=== PATIENT | male | born 1940 | race African-American/Black ===

== ENCOUNTER 2020-12-29 23:34 | Inpatient (IN) | payer MEDICARE, MEDICAID ==
[2020-12-30] MEDS ORDERED: Furosemide 40 MG/4 ML VIAL ONE (00:33)
[2020-12-30] MEDS ORDERED: Nitroglycerin 2% Ointment 1 INCH/1 GM Packet ONE (00:34)
[2020-12-30 00:57] LABS: Bilirubin Neg (Negative); Blood, Urine 10 (Negative); Clarity Clear (Clear); Glucose, Urine (Dipstick) Normal (Negative); Ketone, Urine Negative (Negative); Leukocyte 500 (Negative); Nitrite Positive (Negative); Protein, Urine (Dipstick) 15 mg/dl (Neg-Trace); Urobilinogen Normal mg/dL (Less than 2)
[2020-12-30 00:58] LABS: #Basophils 0.1 10x3/uL (0.0-0.2); #Neutrophils 5.5 10x3/uL (1.5-8.4); %Basophils 0.6 % (0.0-2.0); %Eosinophils 0.2 % (0.0-6.0); %Lymphocytes 14.9 % (18.0-47.0); %Monocytes 12.3 % (0.0-10.0); %Neutrophils 67.7 % (40.0-75.0); Hemoglobin 11.4 g/dL (13.5-17.5); Mean Corpuscular HGB CONC 32.2 g/dL (32.0-36.0); Mean Corpuscular Hemoglobin 27.5 pg (27.0-33.0); Mean Corpuscular Volume 85.5 fl (81.2-95.1); Mean Platelet Volume 10.8 fl (7.4-10.4); Platelet Count 148 10x3/uL (150-450); RBC Distribution Width 16.5 % (11.5-14.5); Red Blood Cell (RBC) Count 4.14 10x6/uL (4.32-5.72); White Blood Cell (WBC) Count 8.2 10x3/uL (3.5-10.5)
[2020-12-30 01:01] LABS: ALT (SGPT) 13 U/L (8-55); AST (SGOT) 16 U/L (5-34); Albumin 2.6 g/dL (3.4-4.8); Alkaline Phosphatase 87 U/L (40-110); Anion Gap 10 mmol/L (10-20); BUN (Urea Nitrogen) 35 mg/dL (8.4-25.7); Bilirubin, Total 0.2 mg/dL (0.2-1.2); CK (CPK) 103 U/L (30-200); Calc. Creatinine Clearance 0 mL/min (70-130); Calcium 8.7 mg/dL (7.8-10.44); Carbon Dioxide 27 mmol/L (23-31); Chloride 106 mmol/L (98-107); Globulin 4.1 g/dL (2.4-3.5); Glucose 110 mg/dL (83-110); Lipase 38 U/L (8-78); Potassium 4.2 mmol/L (3.5-5.1); Protein, Total 6.7 g/dL (5.8-8.1); Sodium 139 mmol/L (136-145)
[2020-12-30 01:07] LABS: Bacteria/HPF 3+ HPF (None Seen); Squamous Epithelial None Seen HPF (0-3)
[2020-12-30] MEDS ORDERED: cefTRIAXone\\ROCEPHIN 2 GM VIAL ONE (01:39)
[2020-12-30] MEDS ORDERED: Bisacodyl 5 MG TAB PO PRN (03:29)
[2020-12-30] MEDS ORDERED: HYDROcodone/Acetaminophen 5/325 mg Tablet PO PRN (03:29)
[2020-12-30 03:34] LABS: SARS-CoV-2 NAA Rapid Test Not Detected (NotDetected)
[2020-12-30] MEDS ORDERED: FLU VACC QS2021-22(65YR UP)/PF 240 MCG/0.7 ML SYRINGE IM ONE (04:15)
[2020-12-30] MEDS ORDERED: Acetaminophen 325 MG TAB PO PRN (04:40)
[2020-12-30] MEDS ORDERED: Mag-Al Plus 1200 MG/1200 MG/120 MG/30 ML UDCUP PO PRN (04:58)
[2020-12-30] MEDS ORDERED: Albuterol Sulfate 2.5 mg/3 ml Neb NEB PRN (05:01)
[2020-12-30 05:08] LABS: #Monocytes 1.1 10x3/uL (0.0-1.1); #Neutrophils 4.9 10x3/uL (1.5-8.4); %Basophils 0.5 % (0.0-2.0); %Eosinophils 0.5 % (0.0-6.0); %Lymphocytes 17.7 % (18.0-47.0); %Monocytes 14.2 % (0.0-10.0); %Neutrophils 62.9 % (40.0-75.0); Hemoglobin 11.1 g/dL (13.5-17.5); Mean Corpuscular HGB CONC 31.6 g/dL (32.0-36.0); Mean Corpuscular Hemoglobin 27.2 pg (27.0-33.0); Mean Platelet Volume 9.9 fl (7.4-10.4); Platelet Count 129 10x3/uL (150-450); RBC Distribution Width 16.3 % (11.5-14.5); Red Blood Cell (RBC) Count 4.08 10x6/uL (4.32-5.72); White Blood Cell (WBC) Count 7.8 10x3/uL (3.5-10.5)
[2020-12-30 05:10] LABS: Anion Gap 13 mmol/L (10-20); BUN (Urea Nitrogen) 35 mg/dL (8.4-25.7); Calc. Creatinine Clearance 116 mL/min (70-130); Calcium 8.7 mg/dL (7.8-10.44); Carbon Dioxide 27 mmol/L (23-31); Chloride 105 mmol/L (98-107); Glucose 71 mg/dL (83-110); Potassium 4.1 mmol/L (3.5-5.1); Sodium 141 mmol/L (136-145)
[2020-12-30] MEDS: Allopurinol 300 MG TAB PO SCH (09:17)
[2020-12-30] MEDS: Losartan Potassium 50 MG TAB PO SCH (09:17)
[2020-12-30] MEDS: Pregabalin 50 MG CAP PO SCH ×2 (09:18→20:47)
[2020-12-30] MEDS: Aspirin 81 mg Enteric Coated Tablet PO SCH (09:18)
[2020-12-30] MEDS: Ezetimibe 10 MG TAB PO SCH (09:18)
[2020-12-30] MEDS: predniSONE 20 MG TAB PO SCH (09:19)
[2020-12-30] MEDS: Tamsulosin HCl 0.4 MG CAP PO SCH (09:20)
[2020-12-30] MEDS: Finasteride 5 MG TAB PO SCH (09:20)
[2020-12-30] MEDS: Furosemide 40 MG/4 ML VIAL SLOW IVP SCH ×2 (09:21→14:29)
[2020-12-30] MEDS: Spironolactone 25 MG TAB PO SCH (09:21)
[2020-12-30] MEDS: Docusate 100 MG CAP PO SCH ×2 (09:21→20:48)
[2020-12-30] MEDS: Polyethylene Glycol 3350 17 GM Packet PO SCH ×2 (09:22→20:48)
[2020-12-30] MEDS: Potassium Chloride 20 MEQ TAB PO SCH ×2 (09:22→20:48)
[2020-12-30] MEDS: Clotrimazole 1% Cream 15 GM TUBE TOP SCH ×2 (09:23→20:47)
[2020-12-30] MEDS: Loratadine 10 MG TAB PO SCH (09:25)
[2020-12-30] MEDS: Enoxaparin Sodium 40 MG/0.4 ML SYRINGE SC SCH (09:25)
[2020-12-31] MEDS: Furosemide 40 MG/4 ML VIAL SLOW IVP SCH (05:17)
[2020-12-31 08:26] LABS: #Basophils 0.1 10x3/uL (0.0-0.2); #Eosinphils 0.1 10x3/uL (0.0-0.5); #Neutrophils 3.4 10x3/uL (1.5-8.4); %Basophils 0.8 % (0.0-2.0); %Eosinophils 0.8 % (0.0-6.0); %Lymphocytes 22.5 % (18.0-47.0); %Monocytes 16.4 % (0.0-10.0); %Neutrophils 55.3 % (40.0-75.0); Hemoglobin 11.8 g/dL (13.5-17.5); Mean Corpuscular HGB CONC 31.6 g/dL (32.0-36.0); Mean Corpuscular Hemoglobin 26.9 pg (27.0-33.0); Mean Corpuscular Volume 85.2 fl (81.2-95.1); Mean Platelet Volume 10.7 fl (7.4-10.4); Platelet Count 137 10x3/uL (150-450); RBC Distribution Width 16.7 % (11.5-14.5); Red Blood Cell (RBC) Count 4.39 10x6/uL (4.32-5.72); White Blood Cell (WBC) Count 6.2 10x3/uL (3.5-10.5)
[2020-12-31 08:41] LABS: ALT (SGPT) 15 U/L (8-55); AST (SGOT) 20 U/L (5-34); Albumin 2.8 g/dL (3.4-4.8); Alkaline Phosphatase 68 U/L (40-110); Anion Gap 13 mmol/L (10-20); BUN (Urea Nitrogen) 33 mg/dL (8.4-25.7); Bilirubin, Total 0.2 mg/dL (0.2-1.2); Calc. Creatinine Clearance 109 mL/min (70-130); Calcium 9.4 mg/dL (7.8-10.44); Carbon Dioxide 32 mmol/L (23-31); Chloride 104 mmol/L (98-107); Globulin 3.9 g/dL (2.4-3.5); Glucose 63 mg/dL (83-110); Phosphorus 3.9 mg/dL (2.3-4.7); Potassium 4.6 mmol/L (3.5-5.1); Protein, Total 6.7 g/dL (5.8-8.1); Sodium 144 mmol/L (136-145)
[2020-12-31] MEDS: Ezetimibe 10 MG TAB PO SCH (09:10)
[2020-12-31] MEDS: Clotrimazole 1% Cream 15 GM TUBE TOP SCH ×2 (09:10→21:20)
[2020-12-31] MEDS: Losartan Potassium 50 MG TAB PO SCH (09:10)
[2020-12-31] MEDS: Enoxaparin Sodium 40 MG/0.4 ML SYRINGE SC SCH (09:10)
[2020-12-31] MEDS: Tamsulosin HCl 0.4 MG CAP PO SCH (09:11)
[2020-12-31] MEDS: Potassium Chloride 20 MEQ TAB PO SCH ×2 (09:11→20:39)
[2020-12-31] MEDS: Aspirin 81 mg Enteric Coated Tablet PO SCH (09:11)
[2020-12-31] MEDS: Pregabalin 50 MG CAP PO SCH ×2 (09:11→20:39)
[2020-12-31] MEDS: Finasteride 5 MG TAB PO SCH (09:12)
[2020-12-31] MEDS: Loratadine 10 MG TAB PO SCH (09:12)
[2020-12-31] MEDS: Allopurinol 300 MG TAB PO SCH (09:13)
[2020-12-31] MEDS: Spironolactone 25 MG TAB PO SCH (09:13)
[2020-12-31] MEDS: predniSONE 20 MG TAB PO SCH (09:13)
[2020-12-31] MEDS: Polyethylene Glycol 3350 17 GM Packet PO SCH ×2 (09:14→21:21)
[2020-12-31] MEDS: Docusate 100 MG CAP PO SCH ×2 (09:14→21:22)
[2020-12-31 09:44] LABS: Anisocytosis SLIGHT = 6-15 cells (100X) (0-5/hpf); Band 2 % (5-11); Eosinophils 1 % (0-10); Lymphocytes 20 % (21-51); Monocytes 19 % (0-10); Platelet Morphology Comment Appears Adequate
[2020-12-31] MEDS ORDERED: Furosemide 40 MG/4 ML VIAL SLOW IVP SCH (14:00)
[2021-01-01 05:22] LABS: #Eosinphils 0.1 10x3/uL (0.0-0.5); #Neutrophils 4.1 10x3/uL (1.5-8.4); %Basophils 0.3 % (0.0-2.0); %Eosinophils 0.9 % (0.0-6.0); %Monocytes 14.6 % (0.0-10.0); %Neutrophils 59.2 % (40.0-75.0); Hemoglobin 10.6 g/dL (13.5-17.5); Mean Corpuscular HGB CONC 31.8 g/dL (32.0-36.0); Mean Corpuscular Hemoglobin 27.2 pg (27.0-33.0); Mean Corpuscular Volume 85.6 fl (81.2-95.1); Mean Platelet Volume 10.7 fl (7.4-10.4); Platelet Count 134 10x3/uL (150-450); RBC Distribution Width 16.6 % (11.5-14.5); Red Blood Cell (RBC) Count 3.89 10x6/uL (4.32-5.72); White Blood Cell (WBC) Count 6.8 10x3/uL (3.5-10.5)
[2021-01-01 05:53] LABS: ALT (SGPT) 16 U/L (8-55); AST (SGOT) 19 U/L (5-34); Albumin 2.5 g/dL (3.4-4.8); Alkaline Phosphatase 69 U/L (40-110); Anion Gap 13 mmol/L (10-20); BUN (Urea Nitrogen) 40 mg/dL (8.4-25.7); Bilirubin, Total 0.2 mg/dL (0.2-1.2); Calc. Creatinine Clearance 104 mL/min (70-130); Calcium 8.8 mg/dL (7.8-10.44); Carbon Dioxide 30 mmol/L (23-31); Chloride 103 mmol/L (98-107); Globulin 3.2 g/dL (2.4-3.5); Glucose 114 mg/dL (83-110); Magnesium 2.2 mg/dL (1.6-2.6); Phosphorus 3.7 mg/dL (2.3-4.7); Potassium 4.5 mmol/L (3.5-5.1); Protein, Total 5.7 g/dL (5.8-8.1); Sodium 141 mmol/L (136-145)
[2021-01-01 06:30] VITALS: BMI 33.5
[2021-01-01] MEDS: Pregabalin 50 MG CAP PO SCH (08:34)
[2021-01-01] MEDS: Enoxaparin Sodium 40 MG/0.4 ML SYRINGE SC SCH (08:34)
[2021-01-01] MEDS: Allopurinol 300 MG TAB PO SCH (08:34)
[2021-01-01] MEDS: Clotrimazole 1% Cream 15 GM TUBE TOP SCH (08:35)
[2021-01-01] MEDS: Spironolactone 25 MG TAB PO SCH (08:35)
[2021-01-01] MEDS: Ezetimibe 10 MG TAB PO SCH (08:35)
[2021-01-01] MEDS: Furosemide 20 MG TAB PO SCH ×2 (08:35→14:14)
[2021-01-01] MEDS: Potassium Chloride 20 MEQ TAB PO SCH (08:35)
[2021-01-01] MEDS: Finasteride 5 MG TAB PO SCH (08:35)
[2021-01-01] MEDS: Loratadine 10 MG TAB PO SCH (08:35)
[2021-01-01] MEDS: Aspirin 81 mg Enteric Coated Tablet PO SCH (08:35)
[2021-01-01] MEDS: Losartan Potassium 50 MG TAB PO SCH (08:35)
[2021-01-01] MEDS: predniSONE 20 MG TAB PO SCH (08:35)
[2021-01-01] MEDS: Docusate 100 MG CAP PO SCH (08:36)
[2021-01-01] MEDS: Tamsulosin HCl 0.4 MG CAP PO SCH (08:36)
[2021-01-01] MEDS: Polyethylene Glycol 3350 17 GM Packet PO SCH (08:36)
[2021-01-01 12:08] VITALS: BP 109/63; TEMP 98.2
== END 2021-01-01 15:14 | DRG 293 ==
LOC: CSHERS 23:34 → CSHTELE 12-30 01:51
PROVIDERS: ADMIT Family Medicine; ATTEND Family Medicine
DX: I50.33 Acute on chronic diastolic (congestive) heart failure (principal); G62.9 Polyneuropathy, unspecified; R60.1 Generalized edema; Z20.822 Contact with and (suspected) exposure to COVID-19; R14.0 Abdominal distension (gaseous); Z86.73 Personal history of transient ischemic attack (TIA), and cerebral infarction without residual deficits; E78.5 Hyperlipidemia, unspecified; K21.9 Gastro-esophageal reflux disease without esophagitis; Z80.1 Family history of malignant neoplasm of trachea, bronchus and lung; Z82.49 Family history of ischemic heart disease and other diseases of the circulatory system; Z87.891 Personal history of nicotine dependence; L89.152 Pressure ulcer of sacral region, stage 2; Z97.8 Presence of other specified devices; N40.1 Benign prostatic hyperplasia with lower urinary tract symptoms; I51.7 Cardiomegaly; B35.6 Tinea cruris; E88.09 Other disorders of plasma-protein metabolism, not elsewhere classified; L60.0 Ingrowing nail; B35.1 Tinea unguium
CPT/HCPCS: 36415; 36416; 71045; 74018; 76705; 80053; 81003; 81015; 82550; 83690; 83735; 83880; 84100; 84484; 85025; 87077; 87086; 87186; 93005; 93306; 96374; 96375; J0696; J1650; J1940; J7512; U0002

== ENCOUNTER 2021-02-24 22:21 | Emergency (ER) | payer MEDICARE, MEDICAID | END 2021-02-24 22:45 | disposition home or self-care (01) | LOC: CSHERS 22:21 | DX: T83.011A Breakdown (mechanical) of indwelling urethral catheter, initial encounter (principal); Z46.6 Encounter for fitting and adjustment of urinary device; I13.0 Hypertensive heart and chronic kidney disease with heart failure and stage 1 through stage 4 chronic kidney disease, or unspecified chronic kidney disease; I50.9 Heart failure, unspecified; N18.9 Chronic kidney disease, unspecified; D63.1 Anemia in chronic kidney disease; K21.9 Gastro-esophageal reflux disease without esophagitis; E78.5 Hyperlipidemia, unspecified; Z86.73 Personal history of transient ischemic attack (TIA), and cerebral infarction without residual deficits; G62.9 Polyneuropathy, unspecified; Z79.82 Long term (current) use of aspirin; Z79.899 Other long term (current) drug therapy | CPT/HCPCS: 51702 ==

== ENCOUNTER 2021-03-15 22:08 | Emergency (ER) | payer MEDICARE ==
[2021-03-15 22:55] LABS: Bilirubin Neg (Negative); Blood, Urine 25 (Negative); Clarity Slightly Cloudy (Clear); Glucose, Urine (Dipstick) Normal (Negative); Ketone, Urine Negative (Negative); Leukocyte 500 (Negative); Nitrite Negative (Negative); Protein, Urine (Dipstick) 15 mg/dl (Neg-Trace); Urobilinogen Normal mg/dL (Less than 2)
[2021-03-15 23:19] LABS: Bacteria/HPF 4+ HPF (None Seen); RBC/HPF 0-3 HPF (0-3); Squamous Epithelial None Seen HPF (0-3)
[2021-03-15 23:20] LABS: Mucous/LPF 1+ LPF (<2+)
== END 2021-03-15 23:13 | disposition home or self-care (01) ==
LOC: CSHERS 22:08
DX: T83.098A Other mechanical complication of other urinary catheter, initial encounter (principal); B37.2 Candidiasis of skin and nail
CPT/HCPCS: 51702; 81003; 81015; 87077; 87086; 87186

== ENCOUNTER 2021-03-23 06:43 | Inpatient (IN) | payer MEDICARE, MEDICAID ==
[2021-03-23 07:36] LABS: Hemoglobin 12.6 g/dL (13.5-17.5); Mean Corpuscular HGB CONC 31.7 g/dL (32.0-36.0); Mean Corpuscular Hemoglobin 27.7 pg (27.0-33.0); Mean Corpuscular Volume 87.3 fl (81.2-95.1); Mean Platelet Volume 10.1 fl (7.4-10.4); Platelet Count 188 10x3/uL (150-450); RBC Distribution Width 17.1 % (11.5-14.5); Red Blood Cell (RBC) Count 4.55 10x6/uL (4.32-5.72); White Blood Cell (WBC) Count 10.1 10x3/uL (3.5-10.5)
[2021-03-23 07:37] LABS: MDiff Complete? YES
[2021-03-23 07:57] LABS: ALT (SGPT) 13 U/L (8-55); AST (SGOT) 20 U/L (5-34); Albumin 3.1 g/dL (3.4-4.8); Alkaline Phosphatase 71 U/L (40-110); Anion Gap 18 mmol/L (10-20); BUN (Urea Nitrogen) 67 mg/dL (8.4-25.7); Bilirubin, Total 0.3 mg/dL (0.2-1.2); Calc. Creatinine Clearance 0 mL/min (70-130); Calcium 8.7 mg/dL (7.8-10.44); Carbon Dioxide 23 mmol/L (23-31); Chloride 98 mmol/L (98-107); Globulin 3.6 g/dL (2.4-3.5); Glucose 95 mg/dL (83-110); Potassium 5.4 mmol/L (3.5-5.1); Protein, Total 6.7 g/dL (5.8-8.1); Sodium 134 mmol/L (136-145)
[2021-03-23 08:15] LABS: Diff Comment (RBC Morph SCRN) NORMAL
[2021-03-23 08:16] LABS: Platelet Morphology Comment Appears Adequate
[2021-03-23 08:40] LABS: Lymphocytes 27 % (21-51); Monocytes 35 % (0-10); Neutrophil 36 % (42-75); Reactive Lymphocytes 2 % (0-10)
[2021-03-23] MEDS ORDERED: Ondansetron PF 4 MG/2 ML Vial IVP PRN (09:20)
[2021-03-23] MEDS: Sodium Chloride 0.9% 1,000 ML IV SCH (10:30)
[2021-03-23] MEDS ORDERED: Sodium Chloride 0.9% 500 ML IV SCH (10:45)
[2021-03-23 11:01] LABS: Bilirubin Neg (Negative); Blood, Urine 150 (Negative); Clarity Cloudy (Clear); Glucose, Urine (Dipstick) Normal (Negative); Ketone, Urine Negative (Negative); Leukocyte 500 (Negative); Nitrite Positive (Negative); Protein, Urine (Dipstick) 30 mg/dl (Neg-Trace); Urobilinogen Normal mg/dL (Less than 2)
[2021-03-23 11:17] LABS: Bacteria/HPF 4+ HPF (None Seen); Squamous Epithelial 0-3 HPF (0-3); Triple Phosphate Crystal 4+ HPF (None Seen)
[2021-03-23 11:18] LABS: Urine Culture Reflex Yes Yes
[2021-03-23 11:19] LABS: Lactic Acid 2.4 mmol/L (0.5-2.2)
[2021-03-23] MEDS ORDERED: Norepinephrine 8 MG/0.9% NS 250 ML ONE (13:53)
[2021-03-23] MEDS: Norepinephrine 8 MG/0.9% NS 250 ML IVPB SCH (14:00)
[2021-03-23] MEDS ORDERED: Cefepime 1 GM VIAL ONE (14:10)
[2021-03-23 15:16] LABS: Anion Gap 17 mmol/L (10-20); BUN (Urea Nitrogen) 62 mg/dL (8.4-25.7); Calc. Creatinine Clearance 0 mL/min (70-130); Calcium 8.2 mg/dL (7.8-10.44); Carbon Dioxide 22 mmol/L (23-31); Chloride 103 mmol/L (98-107); Glucose 96 mg/dL (83-110); Sodium 136 mmol/L (136-145)
[2021-03-23 15:18] LABS: Potassium 5.5 mmol/L (3.5-5.1)
[2021-03-23] MEDS ORDERED: Vancomycin 1.5 GRAM/300 ML BAG 1.5 GM in Premix Bag 1 BAG IVPB SCH (15:30)
[2021-03-23] MEDS ORDERED: Vancomycin HCl 500 MG VIAL ONE (18:10)
[2021-03-23] MEDS ORDERED: Vancomycin 1 GM in Premix Bag 1 BAG IVPB SCH (21:00)
[2021-03-23] MEDS ORDERED: Cefepime 1 GM in Sodium Chloride 0.9% 100 ML IVPB SCH (21:00)
[2021-03-24] MEDS ORDERED: Cefepime 1 GM VIAL ONE (01:47)
[2021-03-24] MEDS: Cefepime 1 GM in Sodium Chloride 0.9% 100 ML IVPB SCH ×2 (01:53→14:54)
[2021-03-24] MEDS ORDERED: Nystatin Powder 15 GM BOT TOP PRN (02:04)
[2021-03-24] MEDS: Norepinephrine 8 MG/0.9% NS 250 ML IVPB SCH (04:25)
[2021-03-24 05:24] LABS: Anion Gap 14 mmol/L (10-20); Calc. Creatinine Clearance 90 mL/min (70-130); Calcium 8.3 mg/dL (7.8-10.44); Carbon Dioxide 21 mmol/L (23-31); Chloride 109 mmol/L (98-107); Glucose 97 mg/dL (83-110); Potassium 4.6 mmol/L (3.5-5.1); Sodium 139 mmol/L (136-145)
[2021-03-24 05:29] LABS: Hemoglobin 11.9 g/dL (13.5-17.5); Mean Corpuscular HGB CONC 31.2 g/dL (32.0-36.0); Mean Corpuscular Hemoglobin 27.2 pg (27.0-33.0); Mean Corpuscular Volume 87.4 fl (81.2-95.1); Mean Platelet Volume 9.3 fl (7.4-10.4); Platelet Count 161 10x3/uL (150-450); RBC Distribution Width 17.1 % (11.5-14.5); Red Blood Cell (RBC) Count 4.37 10x6/uL (4.32-5.72); White Blood Cell (WBC) Count 7.7 10x3/uL (3.5-10.5)
[2021-03-24 05:38] LABS: BUN (Urea Nitrogen) 49 mg/dL (8.4-25.7)
[2021-03-24] MEDS: Sodium Chloride 0.9% 1,000 ML IV SCH (06:29)
[2021-03-24 07:50] LABS: MDiff Complete? YES
[2021-03-24 08:06] LABS: Band 7 % (5-11); Eosinophils 1 % (0-10); Lymphocytes 15 % (21-51); Monocytes 8 % (0-10); Neutrophil 69 % (42-75)
[2021-03-24 08:07] LABS: Platelet Morphology Comment Appears Adequate
[2021-03-24] MEDS: Zinc Sulfate 220 MG CAP PO SCH (08:42)
[2021-03-24] MEDS: Ascorbic Acid 500 mg Chewable Tablet PO SCH (08:42)
[2021-03-24] MEDS: Cholecalciferol (Vitamin D3) 400 UNITS TAB PO SCH (08:42)
[2021-03-24] MEDS: Nystatin Powder 15 GM BOT TOP SCH ×2 (08:43→20:41)
[2021-03-24] MEDS ORDERED: Furosemide 40 MG/4 ML VIAL SLOW IVP SCH (09:00)
[2021-03-24] MEDS: Clotrimazole 1% Cream 15 GM TUBE TOP SCH ×2 (09:12→20:39)
[2021-03-24] MEDS ORDERED: Vancomycin HCl 1 GM in Sodium Chloride 0.9% 250 ML 250 ML IVPB SCH ×2 (12:00→23:59)
[2021-03-25] MEDS: Cefepime 1 GM in Sodium Chloride 0.9% 100 ML IVPB SCH ×2 (02:21→14:00)
[2021-03-25] MEDS: Sodium Chloride 0.9% 1,000 ML IV SCH (02:44)
[2021-03-25 04:47] LABS: Hemoglobin 10.8 g/dL (13.5-17.5); Mean Corpuscular HGB CONC 32.3 g/dL (32.0-36.0); Mean Corpuscular Hemoglobin 27.9 pg (27.0-33.0); Mean Corpuscular Volume 86.3 fl (81.2-95.1); Mean Platelet Volume 10.4 fl (7.4-10.4); Platelet Count 146 10x3/uL (150-450); RBC Distribution Width 17.2 % (11.5-14.5); Red Blood Cell (RBC) Count 3.87 10x6/uL (4.32-5.72); White Blood Cell (WBC) Count 7.6 10x3/uL (3.5-10.5)
[2021-03-25 05:00] LABS: Anion Gap 13 mmol/L (10-20); BUN (Urea Nitrogen) 42 mg/dL (8.4-25.7); Calc. Creatinine Clearance 94 mL/min (70-130); Calcium 7.9 mg/dL (7.8-10.44); Carbon Dioxide 18 mmol/L (23-31); Chloride 109 mmol/L (98-107); Glucose 84 mg/dL (83-110); Potassium 4.4 mmol/L (3.5-5.1); Sodium 136 mmol/L (136-145)
[2021-03-25 07:51] LABS: MDiff Complete? YES
[2021-03-25] MEDS: Cholecalciferol (Vitamin D3) 400 UNITS TAB PO SCH (08:05)
[2021-03-25] MEDS: Zinc Sulfate 220 MG CAP PO SCH (08:05)
[2021-03-25] MEDS: Ascorbic Acid 500 mg Chewable Tablet PO SCH (08:05)
[2021-03-25] MEDS: Nystatin Powder 15 GM BOT TOP SCH ×2 (08:06→21:38)
[2021-03-25] MEDS: Clotrimazole 1% Cream 15 GM TUBE TOP SCH (08:06)
[2021-03-25 08:25] LABS: Band 2 % (5-11); Lymphocytes 14 % (21-51); Metamyelocyte 3 % (0-0); Monocytes 5 % (0-10); Myelocyte 1 % (0-0); Neutrophil 75 % (42-75)
[2021-03-25 08:26] LABS: Anisocytosis SLIGHT = 6-15 cells (100X) (0-5/hpf); Platelet Morphology Comment Appears Adequate
[2021-03-25] MEDS ORDERED: FLU VACC QS2021-22(65YR UP)/PF 240 MCG/0.7 ML SYRINGE IM ONE (09:00)
[2021-03-25 11:59] LABS: Vancomycin, Trough 18.6 ug/mL
[2021-03-25] MEDS: Vancomycin HCl 1 GM in Sodium Chloride 0.9% 250 ML 250 ML IVPB SCH (17:11)
[2021-03-25] MEDS ORDERED: Ketoconazole 2% Cream 15 gm Tube TOP SCH (21:00)
[2021-03-25] MEDS: Acetaminophen 325 MG TAB PO PRN (21:37)
[2021-03-26] MEDS: traMADol HCl 50 MG TAB PO PRN ×2 (00:11→12:03)
[2021-03-26] MEDS: Cefepime 1 GM in Sodium Chloride 0.9% 100 ML IVPB SCH ×2 (02:43→14:24)
[2021-03-26 03:46] LABS: Band 17 % (5-11); Eosinophils 1 % (0-10); Hemoglobin 10.3 g/dL (13.5-17.5); Large Platelets SLIGHT; Lymphocytes 13 % (21-51); MDiff Complete? YES; Mean Corpuscular HGB CONC 31.8 g/dL (32.0-36.0); Mean Corpuscular Hemoglobin 27.2 pg (27.0-33.0); Mean Corpuscular Volume 85.7 fl (81.2-95.1); Mean Platelet Volume 9.8 fl (7.4-10.4); Monocytes 12 % (0-10); Neutrophil 57 % (42-75); Platelet Clumps SLIGHT; Platelet Count 136 10x3/uL (150-450); RBC Distribution Width 16.9 % (11.5-14.5); RBC Morphology Normal; Red Blood Cell (RBC) Count 3.78 10x6/uL (4.32-5.72); White Blood Cell (WBC) Count 5.2 10x3/uL (3.5-10.5)
[2021-03-26 03:47] LABS: Anion Gap 13 mmol/L (10-20); BUN (Urea Nitrogen) 33 mg/dL (8.4-25.7); Calc. Creatinine Clearance 113 mL/min (70-130); Calcium 7.7 mg/dL (7.8-10.44); Carbon Dioxide 19 mmol/L (23-31); Chloride 105 mmol/L (98-107); Glucose 73 mg/dL (83-110); Potassium 4.3 mmol/L (3.5-5.1); Sodium 133 mmol/L (136-145)
[2021-03-26] MEDS: Zinc Sulfate 220 MG CAP PO SCH (08:10)
[2021-03-26] MEDS: Ascorbic Acid 500 mg Chewable Tablet PO SCH (08:10)
[2021-03-26] MEDS: Cholecalciferol (Vitamin D3) 400 UNITS TAB PO SCH (08:10)
[2021-03-26] MEDS: Enoxaparin Sodium 40 MG/0.4 ML SYRINGE SC SCH ×2 (08:30→20:37)
[2021-03-26] MEDS: Nystatin Powder 15 GM BOT TOP SCH ×2 (08:33→20:37)
[2021-03-26] MEDS ORDERED: Pantoprazole 40 MG VIAL IVP SCH (09:00)
[2021-03-26] MEDS: Vancomycin HCl 1 GM in Sodium Chloride 0.9% 250 ML 250 ML IVPB SCH (12:10)
[2021-03-26] MEDS: Norepinephrine 8 MG/0.9% NS 250 ML IVPB SCH (12:21)
[2021-03-26 16:22] LABS: Actual Bicarbonate (HCO3v) 23 mEq/L (22-28); Base Excess -2.5 mEq/L (-2.0 to +3.0); Calcium, Ionized (venous) 1.02 mmol/L (1.16-1.32); Chloride (VBG) 101 mmol/L (98-106); Hemoglobin (Hb) 13.1 g/dL (12.6-17.4); Potassium (VBG) 5.14 mmol/L (3.70-5.30); Puncture Site Other Site; Sodium 131.7 mmol/L (133-146); pH (venous) 7.35 (7.32-7.43)
[2021-03-26] MEDS: Clotrimazole 1% Cream 15 GM TUBE TOP SCH (20:37)
[2021-03-27] MEDS: Cefepime 1 GM in Sodium Chloride 0.9% 100 ML IVPB SCH ×2 (01:09→14:01)
[2021-03-27] MEDS: Acetaminophen 325 MG TAB PO PRN (01:15)
[2021-03-27] MEDS: traMADol HCl 50 MG TAB PO PRN ×2 (02:36→14:02)
[2021-03-27 05:37] LABS: Vancomycin, Trough 16.1 ug/mL
[2021-03-27] MEDS: Vancomycin HCl 1 GM in Sodium Chloride 0.9% 250 ML 250 ML IVPB SCH (06:32)
[2021-03-27] MEDS: Clotrimazole 1% Cream 15 GM TUBE TOP SCH ×2 (08:00→22:08)
[2021-03-27] MEDS: Nystatin Powder 15 GM BOT TOP SCH ×2 (08:00→22:07)
[2021-03-27] MEDS: Cholecalciferol (Vitamin D3) 400 UNITS TAB PO SCH (09:06)
[2021-03-27] MEDS: Ascorbic Acid 500 mg Chewable Tablet PO SCH (09:06)
[2021-03-27] MEDS: Zinc Sulfate 220 MG CAP PO SCH (09:07)
[2021-03-27] MEDS: Enoxaparin Sodium 40 MG/0.4 ML SYRINGE SC SCH ×2 (09:07→22:07)
[2021-03-28 00:19] VITALS: TEMP 98.1
[2021-03-28] MEDS: Vancomycin HCl 1 GM in Sodium Chloride 0.9% 250 ML 250 ML IVPB SCH (01:29)
[2021-03-28] MEDS: Cefepime 1 GM in Sodium Chloride 0.9% 100 ML IVPB SCH (02:46)
[2021-03-28] MEDS: Nystatin Powder 15 GM BOT TOP SCH ×2 (08:57→20:27)
[2021-03-28] MEDS: Clotrimazole 1% Cream 15 GM TUBE TOP SCH ×2 (08:57→20:27)
[2021-03-28] MEDS: Cholecalciferol (Vitamin D3) 400 UNITS TAB PO SCH (08:57)
[2021-03-28] MEDS: Zinc Sulfate 220 MG CAP PO SCH (08:57)
[2021-03-28] MEDS: Enoxaparin Sodium 40 MG/0.4 ML SYRINGE SC SCH ×2 (08:57→20:25)
[2021-03-28] MEDS: Ascorbic Acid 500 mg Chewable Tablet PO SCH (08:57)
[2021-03-28 11:18] VITALS: BP 110/62
[2021-03-28] MEDS: Amoxicillin/Potassium Clav 875 MG TAB PO SCH (20:25)
[2021-03-29] MEDS: traMADol HCl 50 MG TAB PO PRN (03:03)
[2021-03-29 03:49] LABS: #Eosinphils 0.1 10x3/uL (0.0-0.5); #Monocytes 0.5 10x3/uL (0.0-1.1); #Neutrophils 3.7 10x3/uL (1.5-8.4); %Basophils 0.2 % (0.0-2.0); %Eosinophils 1.7 % (0.0-6.0); %Lymphocytes 14.1 % (18.0-47.0); %Monocytes 10.1 % (0.0-10.0); %Neutrophils 70.1 % (40.0-75.0); Hemoglobin 10.6 g/dL (13.5-17.5); Mean Corpuscular HGB CONC 31.9 g/dL (32.0-36.0); Mean Corpuscular Hemoglobin 27.7 pg (27.0-33.0); Mean Corpuscular Volume 86.7 fl (81.2-95.1); Mean Platelet Volume 9.9 fl (7.4-10.4); Platelet Count 156 10x3/uL (150-450); Red Blood Cell (RBC) Count 3.83 10x6/uL (4.32-5.72); White Blood Cell (WBC) Count 5.3 10x3/uL (3.5-10.5)
[2021-03-29 04:14] LABS: ALT (SGPT) 15 U/L (8-55); AST (SGOT) 32 U/L (5-34); Albumin 2.5 g/dL (3.4-4.8); Alkaline Phosphatase 62 U/L (40-110); Anion Gap 15 mmol/L (10-20); BUN (Urea Nitrogen) 26 mg/dL (8.4-25.7); Bilirubin, Total 0.3 mg/dL (0.2-1.2); Calc. Creatinine Clearance 116 mL/min (70-130); Carbon Dioxide 17 mmol/L (23-31); Chloride 110 mmol/L (98-107); Globulin 3.1 g/dL (2.4-3.5); Potassium 4.3 mmol/L (3.5-5.1); Protein, Total 5.6 g/dL (5.8-8.1); Sodium 138 mmol/L (136-145)
[2021-03-29 04:28] LABS: Glucose 59 mg/dL (83-110)
[2021-03-29] MEDS ORDERED: Dextrose 50% Abboject 50 ML SYRINGE ONE (05:15)
[2021-03-29] MEDS: Ascorbic Acid 500 mg Chewable Tablet PO SCH (08:00)
[2021-03-29] MEDS: Enoxaparin Sodium 40 MG/0.4 ML SYRINGE SC SCH (08:00)
[2021-03-29] MEDS: Amoxicillin/Potassium Clav 875 MG TAB PO SCH (08:00)
[2021-03-29] MEDS: Zinc Sulfate 220 MG CAP PO SCH (08:00)
[2021-03-29] MEDS: Cholecalciferol (Vitamin D3) 400 UNITS TAB PO SCH (08:01)
[2021-03-29] MEDS: Nystatin Powder 15 GM BOT TOP SCH (08:01)
[2021-03-29] MEDS: Clotrimazole 1% Cream 15 GM TUBE TOP SCH (08:01)
[2021-03-29 08:26] VITALS: BMI 33.0
== END 2021-03-29 16:30 | disposition home or self-care (01) | DRG 698 ==
LOC: CSHERS 06:43 → CSHERHOLD 14:20 → CSHIMCU 22:07
PROVIDERS: ADMIT Family Medicine; ATTEND Hospitalist
PROC: 02HV33Z Insertion of Infusion Device into Superior Vena Cava, Percutaneous Approach (ICD-10-PCS; principal; 2021-03-23)
PROC: B548ZZA Ultrasonography of Superior Vena Cava, Guidance (ICD-10-PCS; 2021-03-23)
PROC: 8E0ZXY6 Isolation (ICD-10-PCS; 2021-03-23)
PROC: 3E033XZ Introduction of Vasopressor into Peripheral Vein, Percutaneous Approach (ICD-10-PCS; 2021-03-23)
DX: T83.511A Infection and inflammatory reaction due to indwelling urethral catheter, initial encounter (principal); A41.9 Sepsis, unspecified organism; U07.1 COVID-19; R65.21 Severe sepsis with septic shock; G93.41 Metabolic encephalopathy; N17.9 Acute kidney failure, unspecified; I50.32 Chronic diastolic (congestive) heart failure; E87.1 Hypo-osmolality and hyponatremia; L03.90 Cellulitis, unspecified; I13.0 Hypertensive heart and chronic kidney disease with heart failure and stage 1 through stage 4 chronic kidney disease, or unspecified chronic kidney disease; N39.0 Urinary tract infection, site not specified; N40.0 Benign prostatic hyperplasia without lower urinary tract symptoms; E78.5 Hyperlipidemia, unspecified; E66.9 Obesity, unspecified; K21.9 Gastro-esophageal reflux disease without esophagitis; M10.9 Gout, unspecified; N40.1 Benign prostatic hyperplasia with lower urinary tract symptoms; R39.14 Feeling of incomplete bladder emptying; Y83.8 Other surgical procedures as the cause of abnormal reaction of the patient, or of later complication, without mention of misadventure at the time of the procedure; E87.5 Hyperkalemia; N18.30 Chronic kidney disease, stage 3 unspecified; E88.09 Other disorders of plasma-protein metabolism, not elsewhere classified; E16.2 Hypoglycemia, unspecified; Z79.82 Long term (current) use of aspirin; Z79.51 Long term (current) use of inhaled steroids; Z79.899 Other long term (current) drug therapy; Z87.891 Personal history of nicotine dependence; I69.320 Aphasia following cerebral infarction; Z68.33 Body mass index [BMI] 33.0-33.9, adult
CPT/HCPCS: 36415; 36416; 71045; 80048; 80053; 80202; 81001; 82805; 83605; 83880; 84484; 85007; 85025; 85027; 87040; 87086; 93005; J0692; J1650; J1940; J3370; J3490; J7050

== ENCOUNTER 2021-03-29 23:48 | Inpatient (IN) | payer MEDICARE, MEDICAID ==
[2021-03-30] MEDS ORDERED: Dextrose 50% Abboject 50 ML SYRINGE ONE ×2 (00:12→01:26)
[2021-03-30] MEDS ORDERED: Acetaminophen 650 MG Suppository ONE (00:21)
[2021-03-30 00:27] LABS: #Eosinphils 0.1 10x3/uL (0.0-0.5); #Monocytes 0.6 10x3/uL (0.0-1.1); #Neutrophils 5.2 10x3/uL (1.5-8.4); %Basophils 0.1 % (0.0-2.0); %Eosinophils 1.2 % (0.0-6.0); %Lymphocytes 11.1 % (18.0-47.0); %Monocytes 9.1 % (0.0-10.0); %Neutrophils 75.9 % (40.0-75.0); Hemoglobin 11.4 g/dL (13.5-17.5); Mean Corpuscular HGB CONC 31.5 g/dL (32.0-36.0); Mean Corpuscular Hemoglobin 27.3 pg (27.0-33.0); Mean Corpuscular Volume 86.8 fl (81.2-95.1); Mean Platelet Volume 9.7 fl (7.4-10.4); Platelet Count 171 10x3/uL (150-450); RBC Distribution Width 17.2 % (11.5-14.5); Red Blood Cell (RBC) Count 4.17 10x6/uL (4.32-5.72); White Blood Cell (WBC) Count 6.9 10x3/uL (3.5-10.5)
[2021-03-30 00:37] LABS: ALT (SGPT) 16 U/L (8-55); AST (SGOT) 35 U/L (5-34); Albumin 2.8 g/dL (3.4-4.8); Alkaline Phosphatase 65 U/L (40-110); Anion Gap 15 mmol/L (10-20); BUN (Urea Nitrogen) 23 mg/dL (8.4-25.7); Bilirubin, Total 0.3 mg/dL (0.2-1.2); Calc. Creatinine Clearance 0 mL/min (70-130); Calcium 8.3 mg/dL (7.8-10.44); Carbon Dioxide 17 mmol/L (23-31); Chloride 111 mmol/L (98-107); Globulin 3.1 g/dL (2.4-3.5); Glucose 65 mg/dL (83-110); Potassium 4.2 mmol/L (3.5-5.1); Protein, Total 5.9 g/dL (5.8-8.1); Sodium 139 mmol/L (136-145)
[2021-03-30] MEDS ORDERED: cefTRIAXone\\ROCEPHIN 2 GM VIAL ONE (01:07)
[2021-03-30 01:37] LABS: Bilirubin Neg (Negative); Blood, Urine 25 (Negative); Clarity Clear (Clear); Glucose, Urine (Dipstick) Normal (Negative); Ketone, Urine Negative (Negative); Leukocyte Negative (Negative); Nitrite Negative (Negative); Protein, Urine (Dipstick) 30 mg/dl (Neg-Trace); Specific Gravity, Urine 1.015 (1.002-1.036); Urobilinogen Normal mg/dL (Less than 2); pH, Urine 6.5 (5.0-9.0)
[2021-03-30 01:53] LABS: Bacteria/HPF Rare-Few HPF (None Seen); RBC/HPF 0-3 HPF (0-3); Squamous Epithelial 0-3 HPF (0-3); Transitional Epithelial 0-3 HPF (None Seen)
[2021-03-30] MEDS ORDERED: Senokot S 8.6-50 MG TAB PO PRN (01:59)
[2021-03-30] MEDS ORDERED: Meropenem 1 GM in Sodium Chloride 0.9% 100 ML IVPB SCH ×2 (03:00→04:00)
[2021-03-30 03:01] LABS: SARS-CoV-2 NAA Rapid Test DETECTED (NotDetected)
[2021-03-30] MEDS ORDERED: Vancomycin 1.5 GRAM/300 ML BAG 1.5 GM in Premix Bag 1 BAG IVPB SCH (04:00)
[2021-03-30] MEDS ORDERED: Sodium Chloride 0.9% 100 ML ONE (04:12)
[2021-03-30] MEDS: Hydrocortisone Sod Succ/PF 100 mg/2 ml Vial IVP SCH ×2 (04:25→17:22)
[2021-03-30] MEDS: Dextrose 5 % And 0.9 % NaCl 1,000 ML IV SCH ×2 (04:26→17:23)
[2021-03-30] MEDS ORDERED: FLU VACC QS2021-22(65YR UP)/PF 240 MCG/0.7 ML SYRINGE IM ONE (04:45)
[2021-03-30] MEDS: Enoxaparin Sodium 40 MG/0.4 ML SYRINGE SC SCH (09:47)
[2021-03-30] MEDS: Meropenem 1 GM in Sodium Chloride 0.9% 100 ML IVPB SCH ×2 (13:28→21:29)
[2021-03-30] MEDS: Nystatin Powder 15 GM BOT TOP SCH (21:28)
[2021-03-30] MEDS: Sodium Bicarbonate Tab 325 MG TAB PO SCH (21:28)
[2021-03-30] MEDS: Acetaminophen 325 MG TAB PO PRN (22:07)
[2021-03-31] MEDS: Vancomycin HCl 1 GM in Sodium Chloride 0.9% 250 ML 250 ML IVPB SCH ×2 (00:44→17:24)
[2021-03-31] MEDS: Hydrocortisone Sod Succ/PF 100 mg/2 ml Vial IVP SCH ×2 (04:37→17:25)
[2021-03-31] MEDS: Acetaminophen 325 MG TAB PO PRN (04:38)
[2021-03-31] MEDS: Meropenem 1 GM in Sodium Chloride 0.9% 100 ML IVPB SCH ×3 (04:38→21:04)
[2021-03-31] MEDS: Dextrose 5 % And 0.9 % NaCl 1,000 ML IV SCH (06:26)
[2021-03-31 07:06] LABS: #Basophils 0.1 10x3/uL (0.0-0.2); #Eosinphils 0.1 10x3/uL (0.0-0.5); #Monocytes 0.5 10x3/uL (0.0-1.1); #Neutrophils 4.8 10x3/uL (1.5-8.4); %Basophils 0.8 % (0.0-2.0); %Eosinophils 0.8 % (0.0-6.0); %Lymphocytes 10.8 % (18.0-47.0); %Monocytes 7.6 % (0.0-10.0); %Neutrophils 76.4 % (40.0-75.0); Hemoglobin 10.6 g/dL (13.5-17.5); Mean Corpuscular HGB CONC 29.9 g/dL (32.0-36.0); Mean Corpuscular Hemoglobin 27.3 pg (27.0-33.0); Mean Corpuscular Volume 91.5 fl (81.2-95.1); Mean Platelet Volume 10.4 fl (7.4-10.4); RBC Distribution Width 17.8 % (11.5-14.5); Red Blood Cell (RBC) Count 3.88 10x6/uL (4.32-5.72); White Blood Cell (WBC) Count 6.3 10x3/uL (3.5-10.5)
[2021-03-31 07:07] LABS: Platelet Count 152 10x3/uL (150-450)
[2021-03-31 07:23] LABS: Platelet Morphology Comment Appears Adequate
[2021-03-31 07:25] LABS: Anisocytosis SLIGHT = 6-15 cells (100X) (0-5/hpf); Hypochromia SLIGHT = 6-15 cells (100X) (0-5/hpf); Macrocytosis SLIGHT = 6-15 cells (100X) (0-5/hpf); Microcytosis SLIGHT = 6-15 cells (100X) (0-5/hpf); Schistocytes SLIGHT = 2-5 cells (100X) (0-1/hpf)
[2021-03-31 08:25] LABS: Anion Gap 14 mmol/L (10-20); BUN (Urea Nitrogen) 19 mg/dL (8.4-25.7); Calc. Creatinine Clearance 117 mL/min (70-130); Calcium 7.5 mg/dL (7.8-10.44); Carbon Dioxide 14 mmol/L (23-31); Chloride 115 mmol/L (98-107); Glucose 97 mg/dL (83-110); Potassium 5.9 mmol/L (3.5-5.1); Sodium 137 mmol/L (136-145)
[2021-03-31] MEDS: Enoxaparin Sodium 40 MG/0.4 ML SYRINGE SC SCH (09:34)
[2021-03-31] MEDS: Sodium Bicarbonate Tab 325 MG TAB PO SCH ×2 (09:35→21:05)
[2021-03-31] MEDS: Nystatin Powder 15 GM BOT TOP SCH ×2 (09:35→21:06)
[2021-03-31 10:48] LABS: Anion Gap 12 mmol/L (10-20); BUN (Urea Nitrogen) 19 mg/dL (8.4-25.7); Calc. Creatinine Clearance 114 mL/min (70-130); Calcium 7.8 mg/dL (7.8-10.44); Carbon Dioxide 18 mmol/L (23-31); Chloride 112 mmol/L (98-107); Glucose 85 mg/dL (83-110); Potassium 4.4 mmol/L (3.5-5.1); Sodium 138 mmol/L (136-145)
[2021-03-31] MEDS ORDERED: oxyCODONE 5 MG TAB PO PRN (16:57)
[2021-03-31] MEDS ORDERED: Dextrose 5 % And 0.9 % NaCl 1,000 ML IV SCH (17:55)
[2021-03-31] MEDS ORDERED: Lactated Ringer's 500 ML IV SCH (18:00)
[2021-03-31 18:40] LABS: Troponin I 0.329 ng/mL (< 0.028)
[2021-03-31] MEDS ORDERED: Lactated Ringer's 1,000 ML IV SCH (19:00)
[2021-03-31] MEDS ORDERED: Ipratropium Bromide 2.5 ml Neb ONE (19:12)
[2021-03-31] MEDS ORDERED: Albuterol Sulfate 2.5 mg/3 ml Neb ONE (19:12)
[2021-03-31] MEDS ORDERED: Furosemide 40 MG/4 ML VIAL ONE (19:15)
[2021-03-31 19:37] LABS: Actual Bicarbonate (HCO3a) 17.8 mEq/L (22-28); Base Excess (BEa) -9.3 mEq/L (-2.0 to +3.0); CO2 Tension 43.4 mmHg (35.0-45.0); Calcium, Ionized (arterial) 1.16 mmol/L (1.12-1.30); Carboxyhemoglobin (COHb) 0.1 gm% (0.0-3.0); Hemoglobin (Hb) 11.3 g/dL (14.0-18.0); O2 Tension (PaO2), arterial 48.1 mmHg (> 60.0); Potassium - ABG Lab 3.8 mmol/L (3.70-5.30); Puncture Site LRA; pH, Arterial 7.23 (7.35-7.45)
[2021-03-31] MEDS ORDERED: Heparin 25,000 units/D5W 500 ML IVPB SCH (19:45)
[2021-03-31] MEDS ORDERED: Heparin 10,000 UNITS/ 10 ML VIAL SLOW IVP SCH (19:45)
[2021-03-31 19:58] LABS: Hemoglobin 12.3 g/dL (13.5-17.5); Platelet Count 309 10x3/uL (150-450)
[2021-03-31] MEDS: Cefepime 2 GM in Sodium Chloride 0.9% 100 ML IVPB SCH (21:04)
[2021-03-31 21:37] LABS: Troponin I 0.744 ng/mL (< 0.028)
[2021-04-01] MEDS ORDERED: Furosemide 100 MG/10 ML VIAL SLOW IVP SCH (02:15)
[2021-04-01] MEDS: Hydrocortisone Sod Succ/PF 100 mg/2 ml Vial IVP SCH (04:00)
[2021-04-01] MEDS: Meropenem 1 GM in Sodium Chloride 0.9% 100 ML IVPB SCH ×2 (04:00→12:47)
[2021-04-01 05:11] LABS: Hemoglobin 10.6 g/dL (13.5-17.5); Mean Corpuscular HGB CONC 31.6 g/dL (32.0-36.0); Mean Corpuscular Hemoglobin 27.1 pg (27.0-33.0); Mean Corpuscular Volume 85.7 fl (81.2-95.1); Mean Platelet Volume 9.9 fl (7.4-10.4); Platelet Count 197 10x3/uL (150-450); RBC Distribution Width 17.6 % (11.5-14.5); Red Blood Cell (RBC) Count 3.91 10x6/uL (4.32-5.72); White Blood Cell (WBC) Count 11.2 10x3/uL (3.5-10.5)
[2021-04-01 05:13] LABS: Anion Gap 13 mmol/L (10-20); BUN (Urea Nitrogen) 21 mg/dL (8.4-25.7); Calc. Creatinine Clearance 99 mL/min (70-130); Carbon Dioxide 18 mmol/L (23-31); Chloride 111 mmol/L (98-107); Glucose 131 mg/dL (83-110); Potassium 3.8 mmol/L (3.5-5.1); Sodium 138 mmol/L (136-145)
[2021-04-01 05:18] LABS: MDiff Complete? YES; Manual Diff?? YES
[2021-04-01 05:21] LABS: PTT Greater than 139.0 sec (22.0-33.0)
[2021-04-01 06:02] LABS: Band 7 % (5-11); Lymphocytes 5 % (21-51); Monocytes 4 % (0-10); Neutrophil 84 % (42-75)
[2021-04-01 06:03] LABS: Anisocytosis SLIGHT = 6-15 cells (100X) (0-5/hpf); Crenated RBC SLIGHT = 1-5 cells (100X) (None Seen); Elliptocytes SLIGHT = 2-5 cells (100X) (0-1/hpf); Macrocytosis SLIGHT = 6-15 cells (100X) (0-5/hpf); Microcytosis SLIGHT = 6-15 cells (100X) (0-5/hpf); Platelet Morphology Comment Appears Adequate; Tear Drops SLIGHT = 2-5 cells (100X) (0-1/hpf)
[2021-04-01 09:54] LABS: Vancomycin, Trough 20.5 ug/mL
[2021-04-01] MEDS: Cefepime 2 GM in Sodium Chloride 0.9% 100 ML IVPB SCH ×2 (10:38→20:51)
[2021-04-01] MEDS: Sodium Bicarbonate Tab 325 MG TAB PO SCH ×2 (10:38→20:52)
[2021-04-01] MEDS: Vancomycin HCl 750 MG in Sodium Chloride 0.9% 250 ML 250 ML IVPB SCH (10:50)
[2021-04-01] MEDS: Nystatin Powder 15 GM BOT TOP SCH ×2 (12:47→22:59)
[2021-04-01] MEDS: Furosemide 100 MG/10 ML VIAL SLOW IVP SCH (13:52)
[2021-04-01] MEDS ORDERED: methylPREDNISolone Sod Succ/PF 125 MG/2 ML VIAL IVP SCH (14:15)
[2021-04-01 14:51] LABS: Actual Bicarbonate (HCO3a) 18.1 mEq/L (22-28); Base Excess (BEa) -4.1 mEq/L (-2.0 to +3.0); Calcium, Ionized (arterial) 1.14 mmol/L (1.12-1.30); Carboxyhemoglobin (COHb) 0.3 gm% (0.0-3.0); Hemoglobin (Hb) 11.7 g/dL (14.0-18.0); O2 Tension (PaO2), arterial 114.9 mmHg (> 60.0); Potassium - ABG Lab 3.6 mmol/L (3.70-5.30); Puncture Site RRA; pH, Arterial 7.48 (7.35-7.45)
[2021-04-01 17:39] LABS: Troponin I 6.476 ng/mL (< 0.028)
[2021-04-01] MEDS: Dexamethasone 20 MG/5 ML VIAL SLOW IVP SCH (20:51)
[2021-04-01] MEDS: Enoxaparin Sodium 60 MG/0.6 ML SYRINGE SC SCH (20:51)
[2021-04-01] MEDS ORDERED: Dexmedetomidine 200 MCG/2 ML VIAL SLOW IVP SCH (23:00)
[2021-04-02] MEDS: Dexmedetomidine In 0.9 % NaCl 400 MCG in Premix Bag 1 BAG IVPB SCH ×2 (00:02→11:20)
[2021-04-02 05:04] LABS: Anion Gap 16 mmol/L (10-20); BUN (Urea Nitrogen) 24 mg/dL (8.4-25.7); Calc. Creatinine Clearance 81 mL/min (70-130); Carbon Dioxide 19 mmol/L (23-31); Chloride 112 mmol/L (98-107); Glucose 132 mg/dL (83-110); Potassium 4.3 mmol/L (3.5-5.1); Sodium 143 mmol/L (136-145)
[2021-04-02] MEDS: Furosemide 100 MG/10 ML VIAL SLOW IVP SCH (05:06)
[2021-04-02] MEDS: Vancomycin HCl 750 MG in Sodium Chloride 0.9% 250 ML 250 ML IVPB SCH ×2 (05:06→23:11)
[2021-04-02 05:23] LABS: #Monocytes 0.6 10x3/uL (0.0-1.1); #Neutrophils 6.7 10x3/uL (1.5-8.4); %Basophils 0.5 % (0.0-2.0); %Eosinophils 0.1 % (0.0-6.0); %Monocytes 7.1 % (0.0-10.0); Hemoglobin 10.9 g/dL (13.5-17.5); Mean Corpuscular HGB CONC 31.5 g/dL (32.0-36.0); Mean Corpuscular Volume 85.9 fl (81.2-95.1); Mean Platelet Volume 9.6 fl (7.4-10.4); Platelet Count 241 10x3/uL (150-450); RBC Distribution Width 17.7 % (11.5-14.5); Red Blood Cell (RBC) Count 4.03 10x6/uL (4.32-5.72); White Blood Cell (WBC) Count 8.6 10x3/uL (3.5-10.5)
[2021-04-02] MEDS: Aspirin 81 mg Enteric Coated Tablet PO SCH (08:50)
[2021-04-02] MEDS: Sodium Bicarbonate Tab 325 MG TAB PO SCH ×2 (08:50→20:16)
[2021-04-02] MEDS: Enoxaparin Sodium 60 MG/0.6 ML SYRINGE SC SCH ×2 (08:50→20:15)
[2021-04-02] MEDS: Dexamethasone 20 MG/5 ML VIAL SLOW IVP SCH ×2 (08:51→20:18)
[2021-04-02] MEDS: Cefepime 2 GM in Sodium Chloride 0.9% 100 ML IVPB SCH ×2 (08:52→20:16)
[2021-04-02] MEDS: Nystatin Powder 15 GM BOT TOP SCH ×2 (08:52→20:22)
[2021-04-02] MEDS ORDERED: Enoxaparin Sodium 40 MG/0.4 ML SYRINGE SC SCH (09:00)
[2021-04-02] MEDS ORDERED: BARICITINIB 2 MG TAB PO SCH (10:30)
[2021-04-02 11:47] LABS: Base Excess (BEa) -2.4 mEq/L (-2.0 to +3.0); Calcium, Ionized (arterial) 1.17 mmol/L (1.12-1.30); Carboxyhemoglobin (COHb) 0.3 gm% (0.0-3.0); O2 Tension (PaO2), arterial 62.5 mmHg (> 60.0); Potassium - ABG Lab 3.8 mmol/L (3.70-5.30); Puncture Site LRA; pH, Arterial 7.47 (7.35-7.45)
[2021-04-02 20:26] LABS: Hemoglobin 12.5 g/dL (13.5-17.5); Platelet Count 277 10x3/uL (150-450)
[2021-04-02 22:24] LABS: Vancomycin, Trough 22.8 ug/mL
[2021-04-03 05:25] LABS: Hemoglobin 11.8 g/dL (13.5-17.5); Mean Corpuscular HGB CONC 32.2 g/dL (32.0-36.0); Mean Corpuscular Hemoglobin 27.1 pg (27.0-33.0); Mean Corpuscular Volume 84.4 fl (81.2-95.1); Mean Platelet Volume 10.5 fl (7.4-10.4); Platelet Count 268 10x3/uL (150-450); RBC Distribution Width 18.4 % (11.5-14.5); Red Blood Cell (RBC) Count 4.35 10x6/uL (4.32-5.72); White Blood Cell (WBC) Count 8.4 10x3/uL (3.5-10.5)
[2021-04-03 05:26] LABS: MDiff Complete? YES; Manual Diff?? YES
[2021-04-03] MEDS ORDERED: Sodium Chloride 0.9% 100 ML ONE (08:10)
[2021-04-03] MEDS: Dexamethasone 20 MG/5 ML VIAL SLOW IVP SCH ×2 (08:11→20:48)
[2021-04-03] MEDS: Nystatin Powder 15 GM BOT TOP SCH ×2 (08:11→20:50)
[2021-04-03 08:12] LABS: Band 3 % (5-11); Lymphocytes 8 % (21-51); Monocytes 4 % (0-10); Neutrophil 82 % (42-75); Reactive Lymphocytes 3 % (0-10)
[2021-04-03] MEDS: Enoxaparin Sodium 60 MG/0.6 ML SYRINGE SC SCH ×2 (08:12→20:48)
[2021-04-03] MEDS: Aspirin 81 mg Enteric Coated Tablet PO SCH (08:12)
[2021-04-03] MEDS: BARICITINIB 2 MG TAB PO SCH (08:12)
[2021-04-03] MEDS: Cefepime 2 GM in Sodium Chloride 0.9% 100 ML IVPB SCH ×2 (08:12→20:48)
[2021-04-03] MEDS: Sodium Bicarbonate Tab 325 MG TAB PO SCH ×2 (08:12→20:48)
[2021-04-03 08:13] LABS: Platelet Morphology Comment Appears Adequate
[2021-04-03 08:14] LABS: Ovalocytes SLIGHT = 2-5 cells (100X) (0-1/hpf)
[2021-04-03] MEDS ORDERED: Furosemide 100 MG/10 ML VIAL SLOW IVP SCH (09:00)
[2021-04-03 10:27] LABS: Anion Gap 14 mmol/L (10-20); BUN (Urea Nitrogen) 35 mg/dL (8.4-25.7); Calc. Creatinine Clearance 66 mL/min (70-130); Calcium 8.7 mg/dL (7.8-10.44); Carbon Dioxide 19 mmol/L (23-31); Chloride 113 mmol/L (98-107); Glucose 120 mg/dL (83-110); Potassium 4.3 mmol/L (3.5-5.1); Sodium 142 mmol/L (136-145)
[2021-04-03] MEDS ORDERED: Lactated Ringer's 1,000 ML IV SCH (12:30)
[2021-04-03] MEDS: Amlodipine 10 MG TAB PO SCH (12:35)
[2021-04-03 15:07] LABS: ALT (SGPT) 23 U/L (8-55); AST (SGOT) 49 U/L (5-34); Albumin 2.5 g/dL (3.4-4.8); Alkaline Phosphatase 61 U/L (40-110); Bilirubin, Direct 0.2 mg/dL (0.1-0.3); Bilirubin, Total 0.3 mg/dL (0.2-1.2)
[2021-04-03] MEDS: hydrALAZINE 20 MG/ML VIAL SLOW IVP PRN (16:50)
[2021-04-03] MEDS ORDERED: Vancomycin HCl 500 MG in Sodium Chloride 0.9% 100 ML IVPB SCH (17:00)
[2021-04-03] MEDS: Lactated Ringer's 1,000 ML IV SCH (17:46)
[2021-04-03] MEDS: Dexmedetomidine In 0.9 % NaCl 400 MCG in Premix Bag 1 BAG IVPB SCH (18:21)
[2021-04-04] MEDS: Lactated Ringer's 1,000 ML IV SCH (00:58)
[2021-04-04] MEDS: Dexmedetomidine In 0.9 % NaCl 400 MCG in Premix Bag 1 BAG IVPB SCH (02:13)
[2021-04-04 03:43] LABS: #Basophils 0.1 10x3/uL (0.0-0.2); #Monocytes 0.9 10x3/uL (0.0-1.1); #Neutrophils 8.2 10x3/uL (1.5-8.4); %Basophils 0.7 % (0.0-2.0); %Lymphocytes 7.2 % (18.0-47.0); %Monocytes 8.3 % (0.0-10.0); %Neutrophils 79.4 % (40.0-75.0); Hemoglobin 11.5 g/dL (13.5-17.5); Mean Corpuscular HGB CONC 32.1 g/dL (32.0-36.0); Mean Corpuscular Hemoglobin 27.3 pg (27.0-33.0); Mean Platelet Volume 9.5 fl (7.4-10.4); RBC Distribution Width 18.4 % (11.5-14.5); Red Blood Cell (RBC) Count 4.21 10x6/uL (4.32-5.72); White Blood Cell (WBC) Count 10.4 10x3/uL (3.5-10.5)
[2021-04-04 03:59] LABS: Calcium 8.6 mg/dL (7.8-10.44); Carbon Dioxide 20 mmol/L (23-31)
[2021-04-04 04:01] LABS: ALT (SGPT) 21 U/L (8-55); AST (SGOT) 37 U/L (5-34); Albumin 2.5 g/dL (3.4-4.8); Alkaline Phosphatase 65 U/L (40-110); Bilirubin, Direct 0.2 mg/dL (0.1-0.3); Bilirubin, Total 0.3 mg/dL (0.2-1.2); Protein, Total 5.7 g/dL (5.8-8.1)
[2021-04-04 04:19] LABS: Anion Gap 15 mmol/L (10-20); BUN (Urea Nitrogen) 46 mg/dL (8.4-25.7); Calc. Creatinine Clearance 61 mL/min (70-130); Chloride 116 mmol/L (98-107); Glucose 156 mg/dL (83-110); Sodium 147 mmol/L (136-145)
[2021-04-04 04:21] LABS: Platelet Count 141 10x3/uL (150-450)
[2021-04-04] MEDS: BARICITINIB 2 MG TAB PO SCH (08:09)
[2021-04-04] MEDS: Aspirin 81 mg Enteric Coated Tablet PO SCH (08:09)
[2021-04-04] MEDS: Cefepime 2 GM in Sodium Chloride 0.9% 100 ML IVPB SCH ×2 (08:09→21:10)
[2021-04-04] MEDS: Amlodipine 10 MG TAB PO SCH (08:09)
[2021-04-04] MEDS: Nystatin Powder 15 GM BOT TOP SCH (08:10)
[2021-04-04] MEDS: Enoxaparin Sodium 60 MG/0.6 ML SYRINGE SC SCH ×2 (08:10→21:10)
[2021-04-04] MEDS: Dexamethasone 20 MG/5 ML VIAL SLOW IVP SCH ×2 (08:10→21:10)
[2021-04-04] MEDS: Sodium Bicarbonate Tab 325 MG TAB PO SCH (08:10)
[2021-04-04] MEDS ORDERED: Sodium Chloride 0.45% 1,000 ML IV SCH (09:00)
[2021-04-04] MEDS ORDERED: Carvedilol 6.25 MG TAB PO SCH (09:15)
[2021-04-04] MEDS: Furosemide 100 MG/10 ML VIAL SLOW IVP SCH ×2 (10:01→17:10)
[2021-04-04] MEDS: Carvedilol 6.25 MG TAB PO SCH (17:10)
[2021-04-04 20:39] LABS: Hemoglobin 12.4 g/dL (13.5-17.5); Platelet Count 359 10x3/uL (150-450)
[2021-04-05] MEDS: Nystatin Powder 15 GM BOT TOP SCH ×3 (00:39→20:51)
[2021-04-05 03:35] LABS: #Basophils 0.1 10x3/uL (0.0-0.2); #Monocytes 1.3 10x3/uL (0.0-1.1); #Neutrophils 9.3 10x3/uL (1.5-8.4); %Basophils 0.5 % (0.0-2.0); %Lymphocytes 7.9 % (18.0-47.0); %Monocytes 10.6 % (0.0-10.0); %Neutrophils 78.1 % (40.0-75.0); Hemoglobin 11.7 g/dL (13.5-17.5); Mean Corpuscular HGB CONC 31.9 g/dL (32.0-36.0); Mean Corpuscular Hemoglobin 27.1 pg (27.0-33.0); Mean Platelet Volume 9.3 fl (7.4-10.4); Platelet Count 285 10x3/uL (150-450); RBC Distribution Width 18.2 % (11.5-14.5); Red Blood Cell (RBC) Count 4.32 10x6/uL (4.32-5.72)
[2021-04-05 03:47] LABS: Anion Gap 17 mmol/L (10-20); BUN (Urea Nitrogen) 55 mg/dL (8.4-25.7); Calc. Creatinine Clearance 57 mL/min (70-130); Calcium 8.9 mg/dL (7.8-10.44); Carbon Dioxide 22 mmol/L (23-31); Chloride 116 mmol/L (98-107); Glucose 119 mg/dL (83-110); Potassium 4.1 mmol/L (3.5-5.1); Sodium 151 mmol/L (136-145)
[2021-04-05 03:50] LABS: ALT (SGPT) 20 U/L (8-55); AST (SGOT) 30 U/L (5-34); Albumin 2.6 g/dL (3.4-4.8); Alkaline Phosphatase 69 U/L (40-110); Bilirubin, Direct 0.2 mg/dL (0.1-0.3); Bilirubin, Total 0.3 mg/dL (0.2-1.2); Protein, Total 5.9 g/dL (5.8-8.1)
[2021-04-05] MEDS: Dexmedetomidine In 0.9 % NaCl 400 MCG in Premix Bag 1 BAG IVPB SCH ×2 (06:41→17:56)
[2021-04-05] MEDS: Carvedilol 6.25 MG TAB PO SCH ×2 (08:51→17:04)
[2021-04-05] MEDS: Amlodipine 10 MG TAB PO SCH (08:51)
[2021-04-05] MEDS: Enoxaparin Sodium 60 MG/0.6 ML SYRINGE SC SCH ×2 (08:52→20:51)
[2021-04-05] MEDS: BARICITINIB 2 MG TAB PO SCH (08:52)
[2021-04-05] MEDS: Aspirin 81 mg Enteric Coated Tablet PO SCH (08:52)
[2021-04-05] MEDS: Cefepime 2 GM in Sodium Chloride 0.9% 100 ML IVPB SCH ×2 (08:52→20:50)
[2021-04-05] MEDS: Dexamethasone 20 MG/5 ML VIAL SLOW IVP SCH ×2 (08:52→20:51)
[2021-04-05] MEDS: Pantoprazole 40 MG VIAL IVP SCH (09:24)
[2021-04-05] MEDS: hydrALAZINE 20 MG/ML VIAL SLOW IVP PRN (15:16)
[2021-04-06 04:32] LABS: #Basophils 0.1 10x3/uL (0.0-0.2); #Neutrophils 9.9 10x3/uL (1.5-8.4); %Basophils 0.4 % (0.0-2.0); %Lymphocytes 5.1 % (18.0-47.0); %Monocytes 8.1 % (0.0-10.0); %Neutrophils 83.8 % (40.0-75.0); Hemoglobin 12.2 g/dL (13.5-17.5); Mean Corpuscular HGB CONC 30.6 g/dL (32.0-36.0); Mean Corpuscular Hemoglobin 27.7 pg (27.0-33.0); Mean Corpuscular Volume 90.5 fl (81.2-95.1); Mean Platelet Volume 9.6 fl (7.4-10.4); Platelet Count 309 10x3/uL (150-450); RBC Distribution Width 18.5 % (11.5-14.5); Red Blood Cell (RBC) Count 4.41 10x6/uL (4.32-5.72); White Blood Cell (WBC) Count 11.8 10x3/uL (3.5-10.5)
[2021-04-06 06:10] LABS: ALT (SGPT) 18 U/L (8-55); AST (SGOT) 28 U/L (5-34); Albumin 2.7 g/dL (3.4-4.8); Alkaline Phosphatase 72 U/L (40-110); Anion Gap 19 mmol/L (10-20); BUN (Urea Nitrogen) 68 mg/dL (8.4-25.7); Bilirubin, Total 0.3 mg/dL (0.2-1.2); Calc. Creatinine Clearance 48 mL/min (70-130); Calcium 8.9 mg/dL (7.8-10.44); Carbon Dioxide 20 mmol/L (23-31); Chloride 121 mmol/L (98-107); Globulin 3.4 g/dL (2.4-3.5); Glucose 107 mg/dL (83-110); Potassium 4.6 mmol/L (3.5-5.1); Protein, Total 6.1 g/dL (5.8-8.1); Sodium 155 mmol/L (136-145)
[2021-04-06] MEDS: Nystatin Powder 15 GM BOT TOP SCH ×2 (09:33→21:46)
[2021-04-06] MEDS: Carvedilol 6.25 MG TAB PO SCH ×2 (10:14→16:19)
[2021-04-06] MEDS: Amlodipine 10 MG TAB PO SCH (10:15)
[2021-04-06] MEDS: BARICITINIB 2 MG TAB PO SCH (10:16)
[2021-04-06] MEDS: Aspirin 81 mg Enteric Coated Tablet PO SCH (10:17)
[2021-04-06] MEDS: Cefepime 2 GM in Sodium Chloride 0.9% 100 ML IVPB SCH ×2 (10:18→21:46)
[2021-04-06] MEDS: Dexamethasone 20 MG/5 ML VIAL SLOW IVP SCH ×2 (10:20→21:47)
[2021-04-06] MEDS: Enoxaparin Sodium 60 MG/0.6 ML SYRINGE SC SCH ×2 (10:35→21:47)
[2021-04-06] MEDS: Dextrose 5% in Water 1,000 ML IV SCH (10:36)
[2021-04-06] MEDS: Pantoprazole 40 MG VIAL IVP SCH (10:36)
[2021-04-06] MEDS ORDERED: Enoxaparin Sodium 60 MG/0.6 ML SYRINGE ONE (10:37)
[2021-04-06] MEDS ORDERED: Atropine Sulfate 1 mg/10 ml Syringe ONE (11:12)
[2021-04-06] MEDS ORDERED: Dextrose 50% Abboject 50 ML SYRINGE ONE (12:00)
[2021-04-06] MEDS ORDERED: Dextrose 50% Abboject 50 ML SYRINGE SLOW IVP PRN (12:04)
[2021-04-06] MEDS ORDERED: Dextrose 5% in Water 1,000 ML IV PRN (12:04)
[2021-04-06 20:41] LABS: Hemoglobin 11.7 g/dL (13.5-17.5); Platelet Count 296 10x3/uL (150-450)
[2021-04-07] MEDS: hydrALAZINE 20 MG/ML VIAL SLOW IVP PRN ×2 (01:49→15:01)
[2021-04-07] MEDS ORDERED: Morphine 4 MG/ML VIAL SLOW IVP SCH ×2 (02:00→15:15)
[2021-04-07 03:49] LABS: #Monocytes 0.8 10x3/uL (0.0-1.1); %Basophils 0.3 % (0.0-2.0); %Lymphocytes 3.7 % (18.0-47.0); %Monocytes 6.5 % (0.0-10.0); %Neutrophils 87.7 % (40.0-75.0); Mean Corpuscular HGB CONC 30.6 g/dL (32.0-36.0); Mean Corpuscular Hemoglobin 27.1 pg (27.0-33.0); Mean Corpuscular Volume 88.7 fl (81.2-95.1); Mean Platelet Volume 9.5 fl (7.4-10.4); Platelet Count 250 10x3/uL (150-450); RBC Distribution Width 18.5 % (11.5-14.5); Red Blood Cell (RBC) Count 4.42 10x6/uL (4.32-5.72); White Blood Cell (WBC) Count 12.6 10x3/uL (3.5-10.5)
[2021-04-07 04:01] LABS: ALT (SGPT) 17 U/L (8-55); AST (SGOT) 24 U/L (5-34); Albumin 2.7 g/dL (3.4-4.8); Alkaline Phosphatase 81 U/L (40-110); Anion Gap 20 mmol/L (10-20); BUN (Urea Nitrogen) 73 mg/dL (8.4-25.7); Bilirubin, Total 0.4 mg/dL (0.2-1.2); Calc. Creatinine Clearance 46 mL/min (70-130); Calcium 9.1 mg/dL (7.8-10.44); Carbon Dioxide 20 mmol/L (23-31); Chloride 124 mmol/L (98-107); Globulin 3.5 g/dL (2.4-3.5); Glucose 127 mg/dL (83-110); Potassium 4.5 mmol/L (3.5-5.1); Protein, Total 6.2 g/dL (5.8-8.1); Sodium 159 mmol/L (136-145)
[2021-04-07] MEDS: Dexmedetomidine In 0.9 % NaCl 400 MCG in Premix Bag 1 BAG IVPB SCH ×2 (04:21→17:45)
[2021-04-07] MEDS: Nystatin Powder 15 GM BOT TOP SCH (09:15)
[2021-04-07] MEDS: Dexamethasone 20 MG/5 ML VIAL SLOW IVP SCH ×2 (09:15→21:26)
[2021-04-07] MEDS: Enoxaparin Sodium 60 MG/0.6 ML SYRINGE SC SCH ×2 (09:15→21:33)
[2021-04-07] MEDS: Cefepime 2 GM in Sodium Chloride 0.9% 100 ML IVPB SCH ×2 (09:20→21:26)
[2021-04-07] MEDS: Amlodipine 10 MG TAB PO SCH (11:32)
[2021-04-07] MEDS: Carvedilol 6.25 MG TAB PO SCH ×2 (11:32→17:49)
[2021-04-07] MEDS: Aspirin 81 mg Enteric Coated Tablet PO SCH (11:33)
[2021-04-07] MEDS: BARICITINIB 2 MG TAB PO SCH (11:33)
[2021-04-07] MEDS ORDERED: Labetalol HCl 100 MG/20 ML VIAL SLOW IVP SCH (15:15)
[2021-04-07] MEDS: Dextrose 5% in Water 1,000 ML IV SCH (18:27)
[2021-04-08 04:15] LABS: #Monocytes 0.6 10x3/uL (0.0-1.1); %Basophils 0.1 % (0.0-2.0); %Lymphocytes 2.9 % (18.0-47.0); %Monocytes 7.1 % (0.0-10.0); %Neutrophils 88.8 % (40.0-75.0); Hemoglobin 11.1 g/dL (13.5-17.5); Mean Corpuscular HGB CONC 31.4 g/dL (32.0-36.0); Mean Corpuscular Hemoglobin 27.3 pg (27.0-33.0); Mean Corpuscular Volume 87.2 fl (81.2-95.1); Mean Platelet Volume 10.9 fl (7.4-10.4); Platelet Count 276 10x3/uL (150-450); RBC Distribution Width 18.7 % (11.5-14.5); Red Blood Cell (RBC) Count 4.06 10x6/uL (4.32-5.72)
[2021-04-08 05:52] LABS: ALT (SGPT) 15 U/L (8-55); AST (SGOT) 27 U/L (5-34); Albumin 2.7 g/dL (3.4-4.8); Alkaline Phosphatase 69 U/L (40-110); Anion Gap 15 mmol/L (10-20); BUN (Urea Nitrogen) 81 mg/dL (8.4-25.7); Bilirubin, Total 0.4 mg/dL (0.2-1.2); Calc. Creatinine Clearance 39 mL/min (70-130); Carbon Dioxide 24 mmol/L (23-31); Chloride 125 mmol/L (98-107); Globulin 3.7 g/dL (2.4-3.5); Glucose 176 mg/dL (83-110); Magnesium 2.5 mg/dL (1.6-2.6); Phosphorus 4.7 mg/dL (2.3-4.7); Potassium 4.6 mmol/L (3.5-5.1); Protein, Total 6.4 g/dL (5.8-8.1); Sodium 159 mmol/L (136-145)
[2021-04-08] MEDS: Dexmedetomidine In 0.9 % NaCl 400 MCG in Premix Bag 1 BAG IVPB SCH ×2 (09:07→23:31)
[2021-04-08] MEDS: Enoxaparin Sodium 60 MG/0.6 ML SYRINGE SC SCH ×2 (09:07→22:06)
[2021-04-08] MEDS: Nystatin Powder 15 GM BOT TOP SCH (09:07)
[2021-04-08] MEDS: Pantoprazole 40 MG VIAL IVP SCH (09:08)
[2021-04-08] MEDS: Dextrose 5% in Water 1,000 ML IV SCH (09:08)
[2021-04-08] MEDS: Cefepime 2 GM in Sodium Chloride 0.9% 100 ML IVPB SCH ×2 (09:08→22:05)
[2021-04-08] MEDS: Dexamethasone 20 MG/5 ML VIAL SLOW IVP SCH ×2 (09:08→22:05)
[2021-04-08] MEDS: Carvedilol 6.25 MG TAB PO SCH ×2 (10:34→17:50)
[2021-04-08] MEDS: Amlodipine 10 MG TAB PO SCH (10:34)
[2021-04-08] MEDS: BARICITINIB 2 MG TAB PO SCH (10:35)
[2021-04-08] MEDS: Aspirin 81 mg Enteric Coated Tablet PO SCH (10:35)
[2021-04-08 20:04] LABS: Hemoglobin 9.8 g/dL (13.5-17.5); Platelet Count 206 10x3/uL (150-450)
[2021-04-09] MEDS: Dexmedetomidine In 0.9 % NaCl 400 MCG in Premix Bag 1 BAG IVPB SCH ×5 (03:08→21:45)
[2021-04-09 03:53] LABS: #Monocytes 0.4 10x3/uL (0.0-1.1); #Neutrophils 5.6 10x3/uL (1.5-8.4); %Basophils 0.2 % (0.0-2.0); %Lymphocytes 3.9 % (18.0-47.0); %Monocytes 6.3 % (0.0-10.0); %Neutrophils 88.7 % (40.0-75.0); Mean Corpuscular HGB CONC 30.9 g/dL (32.0-36.0); Mean Corpuscular Hemoglobin 27.3 pg (27.0-33.0); Mean Corpuscular Volume 88.5 fl (81.2-95.1); Mean Platelet Volume 10.7 fl (7.4-10.4); RBC Distribution Width 18.4 % (11.5-14.5); Red Blood Cell (RBC) Count 3.66 10x6/uL (4.32-5.72); White Blood Cell (WBC) Count 6.3 10x3/uL (3.5-10.5)
[2021-04-09 03:55] LABS: Platelet Count 201 10x3/uL (150-450)
[2021-04-09 04:16] LABS: ALT (SGPT) 13 U/L (8-55); AST (SGOT) 25 U/L (5-34); Albumin 2.4 g/dL (3.4-4.8); Alkaline Phosphatase 58 U/L (40-110); Anion Gap 15 mmol/L (10-20); BUN (Urea Nitrogen) 95 mg/dL (8.4-25.7); Bilirubin, Direct 0.1 mg/dL (0.1-0.3); Bilirubin, Total 0.3 mg/dL (0.2-1.2); Calc. Creatinine Clearance 0 mL/min (70-130); Calcium 8.6 mg/dL (7.8-10.44); Carbon Dioxide 22 mmol/L (23-31); Chloride 130 mmol/L (98-107); Globulin 3.4 g/dL (2.4-3.5); Glucose 111 mg/dL (83-110); Magnesium 2.6 mg/dL (1.6-2.6); Phosphorus 4.8 mg/dL (2.3-4.7); Potassium 5.1 mmol/L (3.5-5.1); Protein, Total 5.8 g/dL (5.8-8.1); Sodium 162 mmol/L (136-145)
[2021-04-09] MEDS ORDERED: Calcium Gluc 4.6 MEQ/10 ML (100 MG/ML) SLOW IVP SCH (06:15)
[2021-04-09] MEDS ORDERED: Dextrose 5 %-0.45 % NaCl 1,000 ML IV SCH (06:30)
[2021-04-09] MEDS: Pantoprazole 40 MG VIAL IVP SCH (09:07)
[2021-04-09] MEDS: Dexamethasone 20 MG/5 ML VIAL SLOW IVP SCH ×2 (09:07→21:38)
[2021-04-09] MEDS: Enoxaparin Sodium 60 MG/0.6 ML SYRINGE SC SCH (09:07)
[2021-04-09] MEDS: Dextrose 5 %-0.45 % NaCl 1,000 ML IV SCH ×2 (09:11→14:23)
[2021-04-09] MEDS: Nystatin Powder 15 GM BOT TOP SCH ×4 (09:12→21:38)
[2021-04-09] MEDS: Aspirin 81 mg Enteric Coated Tablet PO SCH (09:13)
[2021-04-09] MEDS: Carvedilol 6.25 MG TAB PO SCH ×2 (09:13→14:23)
[2021-04-09] MEDS: Amlodipine 10 MG TAB PO SCH (09:13)
[2021-04-09] MEDS: Dextrose 5% in Water 1,000 ML IV SCH ×2 (09:14→16:35)
[2021-04-09] MEDS: Cefepime 2 GM in Sodium Chloride 0.9% 100 ML IVPB SCH ×2 (10:13→10:42)
[2021-04-09 10:40] LABS: Anion Gap 15 mmol/L (10-20); BUN (Urea Nitrogen) 100 mg/dL (8.4-25.7); Calc. Creatinine Clearance 0 mL/min (70-130); Calcium 8.8 mg/dL (7.8-10.44); Carbon Dioxide 24 mmol/L (23-31); Chloride 129 mmol/L (98-107); Glucose 170 mg/dL (83-110); Potassium 5.1 mmol/L (3.5-5.1); Sodium 163 mmol/L (136-145)
[2021-04-09] MEDS: Furosemide 100 MG/10 ML VIAL SLOW IVP SCH (11:03)
[2021-04-09] MEDS ORDERED: BARICITINIB 2 MG TAB PO SCH (15:00)
[2021-04-09] MEDS ORDERED: BARICITINIB 1 MG TAB PO SCH (15:00)
[2021-04-09 20:14] LABS: Anion Gap 12 mmol/L (10-20); BUN (Urea Nitrogen) 103 mg/dL (8.4-25.7); Calc. Creatinine Clearance 0 mL/min (70-130); Calcium 8.5 mg/dL (7.8-10.44); Carbon Dioxide 26 mmol/L (23-31); Chloride 128 mmol/L (98-107); Glucose 161 mg/dL (83-110); Potassium 4.7 mmol/L (3.5-5.1); Sodium 161 mmol/L (136-145)
[2021-04-09] MEDS: Enoxaparin Sodium 30 MG/0.3 ML SYRINGE SC SCH (21:38)
[2021-04-09] MEDS ORDERED: Morphine 4 MG/ML VIAL SLOW IVP PRN (22:51)
[2021-04-10] MEDS: Dextrose 5% in Water 1,000 ML IV SCH (01:17)
[2021-04-10 05:10] LABS: #Monocytes 0.6 10x3/uL (0.0-1.1); #Neutrophils 7.9 10x3/uL (1.5-8.4); %Basophils 0.1 % (0.0-2.0); %Lymphocytes 2.7 % (18.0-47.0); %Monocytes 6.4 % (0.0-10.0); Hemoglobin 9.9 g/dL (13.5-17.5); Mean Corpuscular HGB CONC 30.2 g/dL (32.0-36.0); Mean Corpuscular Hemoglobin 27.6 pg (27.0-33.0); Mean Corpuscular Volume 91.4 fl (81.2-95.1); Mean Platelet Volume 11.4 fl (7.4-10.4); Platelet Count 254 10x3/uL (150-450); RBC Distribution Width 18.3 % (11.5-14.5); Red Blood Cell (RBC) Count 3.59 10x6/uL (4.32-5.72); White Blood Cell (WBC) Count 8.8 10x3/uL (3.5-10.5)
[2021-04-10 05:26] LABS: ALT (SGPT) 13 U/L (8-55); AST (SGOT) 25 U/L (5-34); Albumin 2.4 g/dL (3.4-4.8); Alkaline Phosphatase 67 U/L (40-110); Anion Gap 14 mmol/L (10-20); BUN (Urea Nitrogen) 105 mg/dL (8.4-25.7); Bilirubin, Total 0.3 mg/dL (0.2-1.2); Calc. Creatinine Clearance 31 mL/min (70-130); Calcium 8.5 mg/dL (7.8-10.44); Carbon Dioxide 23 mmol/L (23-31); Globulin 3.4 g/dL (2.4-3.5); Glucose 148 mg/dL (83-110); Magnesium 2.5 mg/dL (1.6-2.6); Protein, Total 5.8 g/dL (5.8-8.1); Sodium 159 mmol/L (136-145)
[2021-04-10 05:28] LABS: Chloride 127 mmol/L (98-107)
[2021-04-10 05:29] LABS: Phosphorus 5.3 mg/dL (2.3-4.7)
[2021-04-10] MEDS ORDERED: HYDROmorphone 0.5 MG/0.5 ML SYRINGE SLOW IVP PRN (08:07)
[2021-04-10] MEDS: Cefepime 2 GM in Sodium Chloride 0.9% 100 ML IVPB SCH (08:56)
[2021-04-10] MEDS: Dexmedetomidine In 0.9 % NaCl 400 MCG in Premix Bag 1 BAG IVPB SCH (08:56)
[2021-04-10] MEDS: Dexamethasone 20 MG/5 ML VIAL SLOW IVP SCH (08:57)
[2021-04-10] MEDS: Pantoprazole 40 MG VIAL IVP SCH (08:57)
[2021-04-10] MEDS: Nystatin Powder 15 GM BOT TOP SCH (08:57)
[2021-04-10] MEDS: Enoxaparin Sodium 30 MG/0.3 ML SYRINGE SC SCH (08:57)
[2021-04-10] MEDS: Carvedilol 6.25 MG TAB PO SCH (10:41)
[2021-04-10] MEDS: Amlodipine 10 MG TAB PO SCH (10:41)
[2021-04-10] MEDS: Aspirin 81 mg Enteric Coated Tablet PO SCH (10:41)
[2021-04-10 13:51] VITALS: BP 154/71; TEMP 97.4
== END 2021-04-10 13:39 | disposition hospice, inpatient (51) | DRG 871 ==
LOC: CSHERS 23:48 → CSHTELE 03-30 03:44 → CSHICU 03-31 20:58
PROVIDERS: ADMIT Family Medicine; ATTEND Family Medicine
PROC: 8E0ZXY6 Isolation (ICD-10-PCS; 2021-03-30)
PROC: 5A09557 Assistance with Respiratory Ventilation, Greater than 96 Consecutive Hours, Continuous Positive Airway Pressure (ICD-10-PCS; 2021-03-31)
PROC: XW0DXM6 Introduction of Baricitinib into Mouth and Pharynx, External Approach, New Technology Group 6 (ICD-10-PCS; principal; 2021-04-03)
DX: A41.9 Sepsis, unspecified organism (principal); U07.1 COVID-19; J12.82 Pneumonia due to coronavirus disease 2019; I50.33 Acute on chronic diastolic (congestive) heart failure; I21.A1 Myocardial infarction type 2; J96.21 Acute and chronic respiratory failure with hypoxia; G93.41 Metabolic encephalopathy; J15.9 Unspecified bacterial pneumonia; R65.21 Severe sepsis with septic shock; E87.2 Acidosis; N17.9 Acute kidney failure, unspecified; E87.0 Hyperosmolality and hypernatremia; I42.8 Other cardiomyopathies; F03.90 Unspecified dementia, unspecified severity, without behavioral disturbance, psychotic disturbance, mood disturbance, and anxiety; L30.9 Dermatitis, unspecified; L89.152 Pressure ulcer of sacral region, stage 2; E88.09 Other disorders of plasma-protein metabolism, not elsewhere classified; E78.5 Hyperlipidemia, unspecified; F41.9 Anxiety disorder, unspecified; N40.0 Benign prostatic hyperplasia without lower urinary tract symptoms; N18.30 Chronic kidney disease, stage 3 unspecified; K21.9 Gastro-esophageal reflux disease without esophagitis; E66.9 Obesity, unspecified; M10.9 Gout, unspecified; E87.6 Hypokalemia; Z86.73 Personal history of transient ischemic attack (TIA), and cerebral infarction without residual deficits; Z97.8 Presence of other specified devices; Z79.82 Long term (current) use of aspirin; Z79.899 Other long term (current) drug therapy; Z87.891 Personal history of nicotine dependence; Z68.31 Body mass index [BMI] 31.0-31.9, adult; Z66 Do not resuscitate
CPT/HCPCS: 36415; 36416; 36600; 71045; 71275; 80048; 80053; 80076; 80202; 81003; 81015; 82248; 82728; 82805; 83605; 83735; 83880; 84100; 84145; 84484; 85025; 85379; 85730; 86140; 86850; 86900; 86901; 87040; 87086; 87804; 93005; 93010; 93306; 94640; 94660; 94760; C9113; J0360; J0610; J0692; J0696; J1100; J1644; J1650; J1720; J1940; J1956; J2185; J2270; J3370; J3490; J7042; J7050; J7070; J7120; J7611; U0002

== ENCOUNTER 2021-04-10 14:17 | Inpatient (IN) | payer OTHER ==
[2021-04-10 14:42] VITALS: BMI 31.4
[2021-04-10] MEDS ORDERED: Morphine 10 MG/0.5 ML ORAL SYRINGE SL PRN (15:00)
[2021-04-10] MEDS ORDERED: Hyoscyamine Sulfate SL 0.125 mg Tablet SL PRN (15:00)
[2021-04-10] MEDS ORDERED: Haloperidol Lactate 5 MG/ML VIAL SLOW IVP PRN (15:00)
[2021-04-10] MEDS ORDERED: Zolpidem Tartrate 5 MG TAB PO PRN (15:00)
[2021-04-10] MEDS ORDERED: Ondansetron PF 4 MG/2 ML Vial IVP PRN (15:00)
[2021-04-10] MEDS ORDERED: Promethazine HCl 25 MG SUPP PR PRN (15:00)
[2021-04-10] MEDS ORDERED: Scopolamine 1.5 mg/72 hour Patch TOP PRN (15:00)
[2021-04-10] MEDS ORDERED: Acetaminophen 650 MG Suppository PR PRN (15:00)
[2021-04-10] MEDS ORDERED: Senokot 8.6 MG TAB PO PRN (15:02)
[2021-04-10] MEDS ORDERED: Milk Of Magnesia 30 ML UDCUP PO PRN (15:02)
[2021-04-10] MEDS ORDERED: Loperamide HCl 2 MG CAP PO PRN (16:08)
[2021-04-10] MEDS: Lorazepam 2 MG/ML VIAL SLOW IVP PRN ×2 (16:21→20:23)
[2021-04-10] MEDS: Morphine 4 MG/ML VIAL SLOW IVP PRN ×2 (20:48→21:30)
[2021-04-10 21:28] VITALS: BP 152/91; TEMP 97.9
[2021-04-11] MEDS ORDERED: Dexamethasone 4 mg/ml Vial SLOW IVP SCH (09:00)
== END 2021-04-11 00:14 | disposition expired | DRG 951 ==
LOC: CSHICU 14:17
PROVIDERS: ADMIT Family Medicine; ATTEND Family Medicine
DX: Z51.5 Encounter for palliative care (principal); U07.1 COVID-19; J12.82 Pneumonia due to coronavirus disease 2019; G93.41 Metabolic encephalopathy; J96.01 Acute respiratory failure with hypoxia; J15.9 Unspecified bacterial pneumonia; N17.9 Acute kidney failure, unspecified; I50.20 Unspecified systolic (congestive) heart failure; F03.90 Unspecified dementia, unspecified severity, without behavioral disturbance, psychotic disturbance, mood disturbance, and anxiety; L30.9 Dermatitis, unspecified; K21.9 Gastro-esophageal reflux disease without esophagitis; I11.0 Hypertensive heart disease with heart failure; N40.0 Benign prostatic hyperplasia without lower urinary tract symptoms; E78.5 Hyperlipidemia, unspecified; L89.152 Pressure ulcer of sacral region, stage 2; E66.9 Obesity, unspecified; M10.9 Gout, unspecified; Z86.73 Personal history of transient ischemic attack (TIA), and cerebral infarction without residual deficits; Z97.8 Presence of other specified devices; Z79.82 Long term (current) use of aspirin; Z79.899 Other long term (current) drug therapy; Z87.891 Personal history of nicotine dependence; Z68.31 Body mass index [BMI] 31.0-31.9, adult
CPT/HCPCS: J2060; J2270